=== PATIENT | male | born 1970 | race American Indian/Alaskan Native ===

== ENCOUNTER 2017-07-19 16:25 | Emergency (ER) | payer OTHER ==
[2017-07-19 16:35] VITALS: BP 157/83
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
[2017-07-19] MEDS ORDERED: PERCOCET 5/325 PO ONE (18:24)
[2017-07-19] MEDS ORDERED: BICILLIN L-A IM ONE (18:24)
== END 2017-07-19 18:22 | disposition home or self-care (01) ==
LOC: ED 16:25
DX: K05.10 Chronic gingivitis, plaque induced (principal); K02.9 Dental caries, unspecified; F17.200 Nicotine dependence, unspecified, uncomplicated
CPT/HCPCS: 87116; 87430; 96372; 99282; J0561

== ENCOUNTER 2020-10-04 05:10 | Emergency (ER) | payer SELFPAY ==
[2020-10-04 06:05] LABS: Basophils % (Auto) 0.5 % (0.0-1.8); Eosinophils # (Auto) 0.1 K/mm3 (0.0-0.4); Eosinophils % (Auto) 1.4 % (0.0-4.3); Hematocrit 44.3 % (35.5-45.6); Hemoglobin 15.4 gm/dl (11.8-15.2); Lymphocytes # (Auto) 1.3 K/mm3 (1.2-5.4); Lymphocytes % (Auto) 14.6 % (13.4-35.0); Mean Corpuscular HGB Conc 35 % (32-34); Mean Corpuscular Volume 91 fl (84-94); Monocytes # (Auto) 0.6 K/mm3 (0.0-0.8); Monocytes % (Auto) 6.2 % (0.0-7.3); Platelet Count 241 K/mm3 (140-440); Red Blood Count 4.88 M/mm3 (3.65-5.03); Red Cell Distribution Width 12.9 % (13.2-15.2)
[2020-10-04 06:20] LABS: Alanine Aminotransferase 16 units/L (7-56); Albumin 4.5 g/dL (3.9-5); BUN/Creatinine Ratio 8; Blood Urea Nitrogen 8 mg/dL (9-20); Calcium 8.9 mg/dL (8.4-10.2); Hemolysis Index 9
--- NOTE | 2020-10-04 06:33 | XRay Report ---
XR chest 1V ap INDICATION / CLINICAL INFORMATION: chest pain COMPARISON: None available. FINDINGS: SUPPORT DEVICES: None. HEART / MEDIASTINUM: No significant abnormality. LUNGS / PLEURA: Lungs are clear. Costophrenic sulci are sharp. No pneumothorax. ADDITIONAL FINDINGS: Eventration of the right diaphragm. No significant additional findings. IMPRESSION: 1. No acute findings. Signer Name: Philippe Horan MD Signed: 10/04/2020 6:28 AM Workstation Name: [id number]
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
[2020-10-04 09:42] LABS: INR 0.94 (0.87-1.13)
[2020-10-04 09:43] LABS: Partial Thromboplastin Time 30.4 Sec. (24.2-36.6)
[2020-10-04 10:07] VITALS: BP 116/76
== END 2020-10-04 10:19 | disposition home or self-care (01) ==
LOC: ED 05:10
DX: R55 Syncope and collapse (principal); R07.89 Other chest pain; F17.200 Nicotine dependence, unspecified, uncomplicated; F12.90 Cannabis use, unspecified, uncomplicated; Z98.890 Other specified postprocedural states; Z79.899 Other long term (current) drug therapy
CPT/HCPCS: 36415; 71045; 80053; 84484; 85025; 85379; 85610; 85730; 93005